=== PATIENT | female | born 1950 | race Caucasian/White ===

== ENCOUNTER → 2017-05-09 | Outpatient (CLI) | payer OTHER, MEDICARE ==
[~2017-05-09] MED LIST: ACET-1311 PO; CLB200 PO; CLTP PO; METO50TA7 PO; MULT-506 PO; OMEG10007 PO; PRLSR20 PO
[2017-05-09 13:03] LABS: ALT/SGPT 28 U/L (12-78); BLOOD UREA NITROGEN 14 mg/dl (7-18); BUN/CREATININE RATIO 15.6 (10-20); CALCIUM 9.1 mg/dl (8.5-10.1); CARBON DIOXIDE 28 mmol/L (21-32); CHLORIDE 107 mmol/L (98-107); CHOLESTEROL 219 mg/dl (0-200); CREATININE 0.89 mg/dl (0.60-1.20); GLUCOSE,FASTING 87 mg/dl (70-99); SODIUM 140 mmol/L (136-145); TRIGLYCERIDES 223 mg/dl (0-150); VERY LOW DENSITY LIPOPROT CALC 45 mg/dl
[2017-05-09 13:06] LABS: ALKALINE PHOSPHATASE 110 U/L (45-117); AST/SGOT 21 U/L (15-37); CHOLESTEROL/HDL RATIO 3.8; HDL CHOLESTEROL 57 mg/dl; LDL CHOLESTEROL CALCULATED 117 mg/dl
== END | disposition home or self-care (01) ==
LOC: C.LABPBG 10:47
PROVIDERS: ATTEND Physician Assistant
DX: Z00.00 Encounter for general adult medical examination without abnormal findings (principal); Z13.21 Encounter for screening for nutritional disorder